=== PATIENT | male | born 1945 | race Caucasian/White ===

== ENCOUNTER → 2016-04-04 | Outpatient (CLI) | payer MEDICARE, OTHER | LOC: GMAL 10:42 | PROVIDERS: ATTEND Family Medicine | DX: M10.9 Gout, unspecified (principal) ==

== ENCOUNTER → 2016-07-30 | Outpatient (CLI) | payer MEDICARE, OTHER | END | disposition home or self-care (01) | LOC: LAB.O 14:26 | PROVIDERS: ATTEND Family Medicine | DX: J43.8 Other emphysema (principal) ==

== ENCOUNTER → 2016-12-31 | Outpatient (CLI) | payer MEDICARE, OTHER | END | disposition home or self-care (01) | LOC: GMAL 10:24 | PROVIDERS: ATTEND Family Medicine | DX: R53.82 Chronic fatigue, unspecified (principal); D51.3 Other dietary vitamin B12 deficiency anemia; Z12.5 Encounter for screening for malignant neoplasm of prostate; E55.9 Vitamin D deficiency, unspecified | CPT/HCPCS: 82306; 82607; 84443; G0103 ==

== ENCOUNTER → 2017-01-10 | Outpatient (CLI) | payer MEDICARE, OTHER ==
--- NOTE | 2017-01-10 16:23 | US ---
EXAM DESCRIPTION: Liver: Ultrasound. CLINICAL HISTORY: ABNORMAL RESULTS OF LIVER FUNCTION STUDIES COMPARISON: None. TECHNIQUE: Transabdominal scannin-dimensional and Doppler modes. FINDINGS: The gallbladder is contracted. 4.3 mm echogenic structure on the gallbladder wall which does not move with patient change in position. No acoustic shadowing. No fluid around the gallbladder. Wall thickening. Common bile duct caliber is 5.5 mm which is within normal limits. . No stones in the visualized portion of the duct. Not tender with transducer pressure. The liver demonstrates increased echogenicity; contour of the liver capsule is smooth where seen. No fluid around the liver. Intrahepatic biliary ducts are non-dilated. Craniocaudal dimension in the mid-clavicular axis is 17.6 cm. Pancreas head, body, tail normal in size and echogenicity. Pancreatic duct is not dilated. Normal Doppler vascularity in the jered hepatis. Abdominal aorta not well seen. IVC visualized and normal caliber. Right kidney long axis measures 10.6 x 5.0 x 4.9 cm. Normal mid renal cortical thickness for age. Echogenicity physiologic with no hydronephrosis, no large calcifications, and no perinephric fluid. Contour smooth and vascularity normal. Proximal ureter not visualized. IMPRESSION: Gallbladder contracted and difficult to evaluate. 5 mm polyp versus fold. Common bile duct normal caliber. Steatosis fatty infiltration of the liver which can be related to obesity or a variety of metabolic and toxic conditions. Normal sound of the intrahepatic and extra hepatic ducts and the pancreas. Physiologic appearance of the right kidney. No ascites. Electronically signed by: Oscar Mcgraw MD 01/10/2017 4:22 PM CDT
== END | disposition home or self-care (01) ==
LOC: US 08:57
PROVIDERS: ATTEND Family Medicine
DX: K82.4 Cholesterolosis of gallbladder (principal); R94.5 Abnormal results of liver function studies; K76.0 Fatty (change of) liver, not elsewhere classified

== ENCOUNTER → 2017-05-06 | Outpatient (CLI) | payer MEDICARE, OTHER | LOC: GMAL 14:44 | PROVIDERS: ATTEND Family Medicine | DX: M10.9 Gout, unspecified (principal); E55.9 Vitamin D deficiency, unspecified ==

== ENCOUNTER → 2017-05-09 | Outpatient (CLI) | payer MEDICARE, OTHER | LOC: GMAL 10:36 | PROVIDERS: ATTEND Family Medicine | DX: D53.9 Nutritional anemia, unspecified (principal) ==

== ENCOUNTER → 2017-06-06 | Outpatient (CLI) | payer MEDICARE, OTHER | LOC: GMAL 11:33 | PROVIDERS: ATTEND Family Medicine | DX: R68.84 Jaw pain (principal); G89.29 Other chronic pain ==

== ENCOUNTER → 2017-08-27 | Outpatient (CLI) | payer MEDICARE, OTHER | LOC: GMAL 18:14 | PROVIDERS: ATTEND Family Medicine | DX: M10.9 Gout, unspecified (principal) ==

== ENCOUNTER → 2017-09-11 | Outpatient (CLI) | payer MEDICARE, OTHER | LOC: LAB.O 14:58 | PROVIDERS: ATTEND Family Medicine | DX: R94.5 Abnormal results of liver function studies (principal); Z11.9 Encounter for screening for infectious and parasitic diseases, unspecified ==

== ENCOUNTER → 2017-10-16 | Outpatient (CLI) | payer MEDICARE, OTHER | LOC: GMAL 11:22 | PROVIDERS: ATTEND Family Medicine | DX: E29.8 Other testicular dysfunction (principal); I10 Essential (primary) hypertension ==

== ENCOUNTER → 2017-10-21 | Outpatient (CLI) | payer MEDICARE, OTHER ==
--- NOTE | 2017-10-21 14:58 | US ---
EXAM DESCRIPTION: Liver: ULTRASOUND. CLINICAL HISTORY: ELEVATED LFTS COMPARISON: Ultrasound liver 01/10/2017. TECHNIQUE: Transabdominal scannin-dimensional and Doppler modes. FINDINGS: Gallbladder: normal size, shape, echogenicity; no intraluminal stones or sludge. No fluid around the gallbladder. No wall thickening. 1.9 mm. Non-tender with transducer pressure. Common bile duct: caliber 5.4 mm within normal limits. Liver: Increased echogenicity; contour liver capsule smooth where seen. No fluid around the liver. Intrahepatic biliary ducts normal caliber. Doppler hepatopedal flow portal vein. 8.3 mm caliber. Long axis right lobe 16.2 Pancreas: Not well visualized. Right kidney: Long axis measures 11.2 cm. Normal Echogenicity. Normal cortical thickness. No hydronephrosis IMPRESSION: 1. Steatosis of the liver with mild enlargement. Normal ducts. Normal flow direction and caliber of the hepatoportal vein. Smooth capsule. No ascites. Stable since the prior study. 2. Normal ultrasound of the gallbladder, no stones or polyps; normal caliber common bile duct. Pancreas not well visualized due to intestinal gas. 3. Normal appearance of the right kidney. Stable since the prior study. Electronically signed by: Oscar Mcgraw MD 10/21/2017 2:57 PM CDT
== END ==
LOC: US 08:51
PROVIDERS: ATTEND Family Medicine
DX: R94.5 Abnormal results of liver function studies (principal); K76.0 Fatty (change of) liver, not elsewhere classified

== ENCOUNTER → 2017-11-28 | Outpatient (CLI) | payer MEDICARE, OTHER | LOC: GMAL 14:08 | PROVIDERS: ATTEND Family Medicine | DX: D45 Polycythemia vera (principal) ==

== ENCOUNTER → 2017-12-03 | Outpatient (CLI) | payer MEDICARE, OTHER | LOC: LAB.O 10:59 | PROVIDERS: ATTEND Family Medicine | DX: D45 Polycythemia vera (principal) ==

== ENCOUNTER → 2017-12-10 | Outpatient (CLI) | payer MEDICARE, OTHER | LOC: GMAL 11:44 | PROVIDERS: ATTEND Family Medicine | DX: D45 Polycythemia vera (principal) ==

== ENCOUNTER → 2018-06-26 | Outpatient (CLI) | payer MEDICARE, OTHER | LOC: GMAL 14:58 | PROVIDERS: ATTEND Family Medicine | DX: D50.8 Other iron deficiency anemias (principal); Z12.5 Encounter for screening for malignant neoplasm of prostate | CPT/HCPCS: 82728; 83540; 83550; G0103 ==

== ENCOUNTER → 2018-10-01 | Outpatient (CLI) | payer MEDICARE, OTHER | LOC: GMAL 10:24 | PROVIDERS: ATTEND Family Medicine | DX: D53.9 Nutritional anemia, unspecified (principal); E78.5 Hyperlipidemia, unspecified; E11.9 Type 2 diabetes mellitus without complications; I10 Essential (primary) hypertension ==

== ENCOUNTER → 2018-10-06 | Outpatient (CLI) | payer MEDICARE, OTHER | LOC: LAB.O 12:33 | PROVIDERS: ATTEND Family Medicine | DX: D45 Polycythemia vera (principal) ==

== ENCOUNTER → 2018-11-24 | Outpatient (CLI) | payer MEDICARE, OTHER | LOC: GMAL 10:33 | PROVIDERS: ATTEND Family Medicine | DX: D53.9 Nutritional anemia, unspecified (principal) ==

== ENCOUNTER → 2019-02-11 | Outpatient (CLI) | payer MEDICARE, OTHER | LOC: GMAL 10:38 | PROVIDERS: ATTEND Family Medicine | DX: D51.3 Other dietary vitamin B12 deficiency anemia (principal); R53.82 Chronic fatigue, unspecified; E55.9 Vitamin D deficiency, unspecified; I10 Essential (primary) hypertension; E11.40 Type 2 diabetes mellitus with diabetic neuropathy, unspecified; E78.2 Mixed hyperlipidemia ==

== ENCOUNTER → 2019-02-19 | Outpatient (CLI) | payer MEDICARE, OTHER | LOC: LAB.O 14:52 | PROVIDERS: ATTEND Family Medicine | DX: D45 Polycythemia vera (principal) ==

== ENCOUNTER → 2019-10-07 | Outpatient (CLI) | payer MEDICARE, OTHER | LOC: GMAL 10:45 | PROVIDERS: ATTEND Family Medicine | DX: E29.8 Other testicular dysfunction (principal); M10.9 Gout, unspecified; E11.9 Type 2 diabetes mellitus without complications; E78.5 Hyperlipidemia, unspecified; Z12.5 Encounter for screening for malignant neoplasm of prostate | CPT/HCPCS: 84402; 84403; 84550; G0103 ==

== ENCOUNTER → 2019-10-20 | Outpatient (CLI) | payer MEDICARE, OTHER | LOC: LAB.O 14:13 | PROVIDERS: ATTEND Family Medicine | DX: D75.1 Secondary polycythemia (principal) ==

== ENCOUNTER → 2020-01-21 | Outpatient (CLI) | payer MEDICARE, OTHER | LOC: LAB.O 08:40 | PROVIDERS: ATTEND Family Medicine | DX: F52.32 Male orgasmic disorder (principal) ==

== ENCOUNTER → 2020-02-10 | Outpatient (CLI) | payer MEDICARE, OTHER | LOC: GMAL 14:16 | PROVIDERS: ATTEND Family Medicine | DX: D64.9 Anemia, unspecified (principal); E53.8 Deficiency of other specified B group vitamins; I10 Essential (primary) hypertension; E55.9 Vitamin D deficiency, unspecified; E78.2 Mixed hyperlipidemia; E11.40 Type 2 diabetes mellitus with diabetic neuropathy, unspecified ==

== ENCOUNTER → 2020-03-07 | Outpatient (CLI) | payer MEDICARE, OTHER ==
[~2020-03-07] MED LIST: IRON SUCROSE INJ 200 MG in SODIUM CHLORIDE 0.9% 250ML 250 ML IV ONE
[2020-03-07 13:26] VITALS: BP 148/78; TEMP 97.8; O2SAT 96
== END ==
LOC: INFRM 03-03 16:10
PROVIDERS: ATTEND Family Medicine
DX: D64.9 Anemia, unspecified (principal)
CPT/HCPCS: 96365; J1756; J7050

== ENCOUNTER → 2020-04-18 | Outpatient (CLI) | payer MEDICARE, OTHER | LOC: GMAL 14:17 | PROVIDERS: ATTEND Family Medicine | DX: D50.8 Other iron deficiency anemias (principal); M10.9 Gout, unspecified ==